=== PATIENT | female | born 1960 | race Caucasian/White ===

== ENCOUNTER → 2016-09-04 | Outpatient (CLI) | payer BC ==
[~2016-09-04] MED LIST: CHOL100010 PO; FEXO1TAB45 PO; GLAT1INJ SQ; MONT1TAB3 PO; PRLSR20 PO
--- NOTE | 2016-09-04 09:22 | DIAGNOSTIC IMAGING REPORT ---
RIGHT KNEE 2 VIEWS CLINICAL HISTORY: Right knee pain. FINDINGS: AP and lateral views of the right knee are obtained. No prior studies are available for comparison at the time of dictation. The skeletal structures are well mineralized for age. No fracture is seen. There is moderate narrowing at the patellofemoral articulation. The joint spaces of the medial and lateral compartments appear maintained. There is degenerative beaking of the tibial spine and small marginal osteophytes. Patellar enthesophytes are observed. A calcified fabella is incidentally noted. No joint effusion is identified. The overlying soft tissues are within normal limits. IMPRESSION: Mild degenerative change as above. No acute bony abnormality is seen in the right knee. Electronically signed by: Fabiano Menjivar M.D. 09/04/2016 9:20 AM Dictated Date/Time: 09/04/2016 9:19 AM
--- NOTE | 2016-09-04 09:26 | DIAGNOSTIC IMAGING REPORT ---
LEFT KNEE 2 VIEWS CLINICAL HISTORY: Left knee pain. FINDINGS: AP and lateral views of the left knee are obtained. No prior studies are available for comparison at the time of dictation. The skeletal structures are well mineralized for age. No fracture is seen. There is moderate narrowing at the patellofemoral articulation. Mild narrowing is seen in the medial compartment. There is degenerative beaking of the tibial spine and small marginal osteophytes. Patellar enthesophytes are observed. A calcified fabella is incidentally noted. No joint effusion is identified. The overlying soft tissues are within normal limits. IMPRESSION: Mild degenerative change as above. No acute bony abnormality is seen in the left knee. Electronically signed by: Fabiano Menjivar M.D. 09/04/2016 9:25 AM Dictated Date/Time: 09/04/2016 9:24 AM
== END | disposition home or self-care (01) ==
LOC: C.RAD1850 08:58
PROVIDERS: ATTEND Family Medicine
DX: M25.561 Pain in right knee (principal); M25.562 Pain in left knee; Z13.220 Encounter for screening for lipoid disorders; G35 Multiple sclerosis; R53.83 Other fatigue

== ENCOUNTER → 2016-09-05 | Outpatient (CLI) | payer BC ==
[2016-09-05 11:27] LABS: BASO % 0.3 %; BASO ABS # 0.02 K/uL (0-0.2); COMPLETE YES; EOS % 2.1 %; HEMATOCRIT 43.7 % (37-47); IG% 0.2 %; LYMPH % 36.7 %; LYMPH ABS # 2.12 K/uL (1.2-3.4); MEAN CELL VOLUME 90.1 fL (80-100); MEAN CORPUSCULAR HEMOGLOBIN 29.3 pg (25-34); MEAN CORPUSCULAR HGB CONC 32.5 g/dl (32-36); MEAN PLATELET VOLUME 9.5 fL (7.4-10.4); MONO % 8.3 %; NEUT % 52.4 %; PLATELET COUNT 225 K/uL (130-400); RED BLOOD COUNT 4.85 M/uL (4.2-5.4); WHITE BLOOD COUNT 5.78 K/uL (4.8-10.8)
[2016-09-05 11:41] LABS: ALT/SGPT 37 U/L (12-78); AST/SGOT 25 U/L (15-37); BLOOD UREA NITROGEN 16 mg/dl (7-18); BUN/CREATININE RATIO 18.9 (10-20); CALCIUM 8.9 mg/dl (8.5-10.1); CARBON DIOXIDE 30 mmol/L (21-32); CHLORIDE 108 mmol/L (98-107); CREATININE 0.84 mg/dl (0.60-1.20); GLUCOSE 84 mg/dl (70-99); HDL CHOLESTEROL 67 mg/dl; POTASSIUM 4.1 mmol/L (3.5-5.1); SODIUM 142 mmol/L (136-145)
[2016-09-05 11:52] LABS: ALB/GLOB RATIO 1.2 (0.9-2); ALKALINE PHOSPHATASE 71 U/L (45-117); CHOLESTEROL 192 mg/dl (0-200); CHOLESTEROL/HDL RATIO 2.9; LDL CHOLESTEROL CALCULATED 107 mg/dl; TRIGLYCERIDES 91 mg/dl (0-150); VERY LOW DENSITY LIPOPROT CALC 18 mg/dl
--- NOTE | 2016-09-09 13:59 | CODING QUERY MEDICAL NECESSITY ---
SUPPORTING DIAGNOSIS NEEDED Dr. Gomez, A supporting diagnosis is required for the test/procedure performed on this patient in order for us to be reimbursed by the patient's insurance. Please provide a supporting diagnosis for the following test/procedure listed below next to the test name along with your signature. *If there is no additional diagnosis for this patient that would support the following test/procedure please document that below next to the test/procedure. Test(s)/Procedure(s) that require a supporting diagnosis: * ([id number]) VITAMIN D ASSAY DIAGNOSIS: DATE OF SERVICE: 09/05/16 Provider Signature: Date: Thank you Meir Rey [facility] Information Management Once completed, please kindly fax back to [phone] For questions please call [phone]
== END | disposition home or self-care (01) ==
LOC: C.LAB 10:42
PROVIDERS: ATTEND Family Medicine
DX: Z13.220 Encounter for screening for lipoid disorders (principal); G35 Multiple sclerosis; R53.83 Other fatigue

== ENCOUNTER → 2016-10-20 | Outpatient (CLI) | payer BC ==
--- NOTE | 2016-10-20 16:43 | MAMMOGRAPHY REPORT ---
BILATERAL DIGITAL SCREENING MAMMOGRAM TOMOSYNTHESIS WITH CAD: 10/20/2016 CLINICAL HISTORY: Routine screening. Patient has no complaints. TECHNIQUE: Breast tomosynthesis in addition to standard 2D mammography was performed. Current study was also evaluated with a Computer Aided Detection (CAD) system. COMPARISON: Comparison is made to exams dated: 09/11/2015 mammogram, 09/04/2014 mammogram, 08/03/2013 shilo mogram, 07/21/2012 mammogram, 05/05/2011 mammogram, and 04/09/2010 mammogram - [facility] er. BREAST COMPOSITION: There are scattered areas of fibroglandular density in both breasts. FINDINGS: The parenchymal pattern is unchanged. No developing mass, architectural distortion or clus ter of suspicious microcalcifications is seen in either breast. IMPRESSION: ACR BI-RADS CATEGORY 2: BENIGN There is no mammographic evidence of malignancy. A 1 year screening mammogram is recommended. The pa tient will receive written notification of the results. Approximately 10% of breast cancers are not detected with mammography. A negative mammographic report should not delay biopsy if a clinically suggestive mass is present. Celena Morgan M.D. ay/:10/20/2016 16:29:25 Pipelayer: Ginny [facility] letter sent: Normal 1/2 BI-RADS Code: ACR BI-RADS Category 2: Benign
== END | disposition home or self-care (01) ==
LOC: C.MAMM 16:02
PROVIDERS: ATTEND Family Medicine
DX: Z12.31 Encounter for screening mammogram for malignant neoplasm of breast (principal)

== ENCOUNTER → 2017-02-19 | Outpatient (CLI) | payer BC | END | disposition home or self-care (01) | LOC: C.PAPS 11:57 | PROVIDERS: ATTEND Obstetrics & Gynecology | DX: Z01.419 Encounter for gynecological examination (general) (routine) without abnormal findings (principal) ==

== ENCOUNTER → 2017-05-11 | Outpatient (CLI) | payer BC ==
[~2017-05-11] MED LIST changes: +GADAVIST IV PRN
--- NOTE | 2017-05-11 09:30 | DIAGNOSTIC IMAGING REPORT ---
Brain MRI WITH AND WITHOUT CONTRAST HISTORY: Multiple sclerosis. Follow-up. TECHNIQUE: Multiplanar multisequence MRI of the brain was performed both before and after the intravenous administration of contrast. COMPARISON STUDY: Outside hospital brain MRI 04/02/2016. FINDINGS: There again noted a few scattered foci of T2 hyperintensity seen within the periventricular and subcortical white matter of the supratentorial brain. Dominant lesion within the subcortical white matter of the right parietal lobe measures approximately 13 mm. No new T2 hyperintense foci identified. There is no mass, hematoma, midline shift, or acute infarct. The ventricles are the midline structures are intact. No abnormal enhancement. The paranasal sinuses and mastoid air cells are clear. The orbits are unremarkable. The major vascular flow-voids at the skull base are well-maintained. IMPRESSION: 1. There are again noted a few scattered white matter plaques within the supratentorial brain, unchanged. This is consistent with the patient's history of multiple sclerosis. 2. No abnormal enhancement to suggest active demyelination. Electronically signed by: Idris Del Rosario M.D. 05/11/2017 9:29 AM Dictated Date/Time: 05/11/2017 9:23 AM
--- NOTE | 2017-05-11 09:43 | DIAGNOSTIC IMAGING REPORT ---
CERVICAL SPINE MRI WITH AND WITHOUT CONTRAST HISTORY: Multiple sclerosis. Follow-up. TECHNIQUE: Multiplanar multisequence MRI of the cervical spine was performed both before and after the use of intravenous contrast. COMPARISON STUDY: Outside hospital cervical spine MRI 04/02/2016. FINDINGS: Alignment and curvature are intact. No fractures within the cervical spine. Moderate disc space narrowing at C5-C6 and C6-C7. The cervical spinal cord is normal in course, caliber, and signal intensity. No abnormal enhancement identified. A partially visualized 7 mm nodule/cyst within the left thyroid lobe and a 5 mm nodule/cyst within the right thyroid lobe. 6 mm T1 and T2 hyperintense focus within the superior endplate of T1. This favors a hemangioma. Prevertebral soft tissues and the C1-C2 interval are intact. C2-C3: No significant central canal or neural foraminal narrowing. C3-C4: No significant central canal or neural foraminal narrowing. C4-C5: No significant central canal or neural foraminal narrowing. C5-C6: Small broad-based posterior disc bulge resulting in mild central canal narrowing. Moderate left neural foraminal narrowing. C6-C7: Small broad-based posterior disc bulge resulting in mild central canal narrowing. No significant right-sided neural foraminal narrowing. Mild left-sided neural foraminal narrowing. C7-T1: No significant central canal or neural foraminal narrowing. IMPRESSION: 1. Normal cervical spinal cord. 2. Degenerative disc disease at C5-C6 and C6-C7 as described above. Electronically signed by: Idris Del Rosario M.D. 05/11/2017 9:42 AM Dictated Date/Time: 05/11/2017 9:31 AM
== END | disposition home or self-care (01) ==
LOC: C.MRIBC 07:46
PROVIDERS: ATTEND Psychiatry & Neurology Neurology
DX: G35 Multiple sclerosis (principal)

== ENCOUNTER 2022-08-08 09:04 | Observation (INO) ==
[2022-08-08] MEDS ORDERED: ACETAMINOPHEN 325 MG TAB PO STA (09:31)
[2022-08-08] MEDS ORDERED: SODIUM CHLORIDE 0.9% 1000ML 2,000 ML IV ONE (09:31)
--- NOTE | 2022-08-08 09:36 | Emergency Department Note ---
Impression & Plan Pneumonia, Parainfluenza, Hypotension ED Provider Note NAME: ROBERT HILL AGE: 62 SEX: F : 1960 ARRIVES VIA: Walk-In INFORMANT: Patient ED PROVIDER(S): Nickolas Greene DO CHIEF COMPLAINT: fever and cough HPI: Patient is a 62-year-old female with a past medical history of multiple sclerosis, demyelinating disorder, and restless leg syndrome who presents to the ER for cough, congestion, runny nose which has been present since last Wednesday. She denies any fevers. She notes some pain in her chest just with coughing. No belly pain. No dysuria, urgency, or frequency. No other exacerbating or remitting factors. PAST MEDICAL HISTORY:See Below PAST SURGICAL HISTORY:See Below FAMILY HISTORY:See Below SOCIAL HISTORY:See Below HOME MEDICATIONS:See Below ALLERGIES:See Below VITALS:See Below PHYSICAL EXAMINATION: GENERAL: Sitting up in bed, alert, well appearing, well nourished, no distress, non-toxic EYE EXAM: normal conjunctiva. OROPHARYNX: mucous membranes are dry NECK: supple, no nuchal rigidity, no adenopathy, non-tender LUNGS: Clear to auscultation. Normal chest wall mechanics HEART: no murmurs, S1 normal and S2 normal ABDOMEN: abdomen soft, non-tender, normo-active bowel sounds, no masses, no rebound or guarding. UPPER EXTREMITIES: upper extremities are grossly normal. LOWER EXTREMITIES: No pitting edema. NEURO EXAM: Normal sensorium, cranial nerves II-XII grossly intact, normal speech, no gross weakness of arms, no gross weakness of legs. MEDICAL DECISION MAKING: Patient is a 60-year-old female who presents to the ER for cough congestion upper respiratory symptoms. IV was established blood work was obtained. Patient was found to be febrile, tachycardic and hypotensive with systolics in the 90s. Patient was given IV fluids and systolic pressures trended up. BMP with LFTs bilirubin was unremarkable. CBC was normal. Troponin was negative. Pro-Jelani normal. UA was clean. Parainfluenza was positive. Does have a left upper lobe infiltrate. Was given azithromycin and Rocephin. Patient was updated bedside. Discussed with Javi Teresa for further evaluation management treatment. Triage Nursing notes reviewed. Limited review of prior medical records performed Vital Signs: reviewed and remarkable for tachy, hypotension and febrile Differential diagnosis: Differential diagnosis includes etiologies such as sepsis, UTI, pneumonia, metabolic, electrolyte abnormalities, cardiac sources, intracerebral event, toxicologic, neurological, as well as others were entertained. ER treatment provided: See below Diagnostics interpreted by me include EKG and cardiac monitoring as listed below: -Cardiac Monitoring: An order was placed for continuous cardiac monitoring. The monitor shows a rate of 101 with sinus rhythm. -ECG: Sinus tachycardia rate of 107 Normal axis No PVCs QTc 433 -Laboratory studies:Interpreted by me as stated above in MDM and shown below. 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 Brother No problems noted. Daughter EDS (Macho-Danlos syndrome) Daughter No problems noted. Son No problems noted. Denies family history of Colon cancer Ovarian cancer Prostate cancer Breast cancer Social History Smoking Status: Never smoker Tobacco Type: Cigarettes Second Hand Exposure: No; Hx Alcohol Use: No Hx Substance Use: No Preferred Language: Mozambican Communication Ability: Effective Visual Impairment: No Limitations Hearing Ability: Normal Steam Service Inspector Required: No Beliefs That Will Affect Care: None marital status: Single Current Living Situation: Alone current occupational status: employed current occupation: Accounting Other Information That Helps Us Care for You: No Feels Safe at Home: Yes Safety Concerns: Feels Safe At This Time Childhood Exposure to Second-Hand Smoke: Yes Diet Comment: regular Dental Care, Regularly: Yes Physical Activity Frequency: Daily Seatbelt Use: always Sunscreen Use: Yes Assistive Devices: None Allergies Allergies Allergy/AdvReac Type Severity Reaction Status Date / Time No Known Drug Allergies Allergy Verified 07/28/22 16:04 Pollen Allergy Unknown Uncoded 07/28/22 16:04 Trees Allergy Unknown Uncoded 07/28/22 16:04 Home Meds Home Medications Medication Instructions Recorded Confirmed cholecalciferol (vitamin D3) 50 2,000 unit PO DAILY 12/24/18 07/28/22 mcg (2,000 unit) capsule cranberry PO DAILY 12/24/18 07/28/22 omega-3 acid ethyl esters 1 gram 1 PO .TAKE 1 CAPSULE DAILY 12/24/18 07/28/22 capsule cyanocobalamin (vitamin B-12) 1,000 mcg PO DAILY 01/18/20 08/08/22 1,000 mcg capsule famotidine 40 mg tablet 40 mg PO DAILY 08/08/22 08/08/22 ropinirole 0.25 mg tablet 0.25 mg PO DIRECTED 08/08/22 08/08/22 Previous Rx's Medication Instructions Recorded cetirizine 10 mg tablet 10 mg PO DAILY #90 tabs 09/01/19 omeprazole 40 mg capsule,delayed 40 mg PO DAILY #90 caps 09/13/21 release montelukast 10 mg tablet 10 mg PO HS #90 tabs 12/19/21 gabapentin 300 mg capsule 600 mg PO HS 90 days #180 caps 03/04/22 mirabegron 25 mg tablet,extended 25 mg PO DAILY #30 tabs 07/13/22 release 24 hr (Myrbetriq) Results & Data (ED) Vital Signs Vital Signs - 24 hr 08/08/22 09:14 08/08/22 09:53 08/08/22 10:00 Temperature 38.0 C H Temperature Source Skin Pulse Rate 105 H 106 H 104 H Pulse Rate [Exercises] Pulse Rate [Recovery] Respiratory Rate 20 21 Respiratory Rate [Exercises] Respiratory Rate [Recovery] Respiratory Effort / Characteristics Non-Labored Spontaneous Labored Respiratory Depth Normal Respiratory Pattern Regular Blood Pressure 98/60 L 124/62 Blood Pressure Mean 72 82 Pulse Oximetry 94 96 Pulse Oximetry [Exercises] Pulse Oximetry [Recovery] Oxygen Delivery Method Room Air Room Air Sepsis Recent Fever Within 48 Hours Yes Sepsis New/Unexplained Change in Mental Status N/A Sepsis Action Taken by Nursing No Action Required 08/08/22 11:03 08/08/22 10:30 08/08/22 12:16 Temperature 37.3 C Temperature Source Oral Pulse Rate 99 H Pulse Rate [Exercises] 108 H Pulse Rate [Recovery] 94 H Respiratory Rate 17 Respiratory Rate [Exercises] 18 Respiratory Rate [Recovery] 18 Respiratory Effort / Characteristics Respiratory Depth Respiratory Pattern Blood Pressure 124/62 Blood Pressure Mean 82 Pulse Oximetry 95 Pulse Oximetry [Exercises] 95 Pulse Oximetry [Recovery] 96 Oxygen Delivery Method Room Air Room Air Sepsis Recent Fever Within 48 Hours Sepsis New/Unexplained Change in Mental Status Sepsis Action Taken by Nursing 08/08/22 11:32 08/08/22 12:00 Temperature Temperature Source Pulse Rate 95 H 90 Pulse Rate [Exercises] Pulse Rate [Recovery] Respiratory Rate 22 20 Respiratory Rate [Exercises] Respiratory Rate [Recovery] Respiratory Effort / Characteristics Respiratory Depth Respiratory Pattern Blood Pressure 131/77 134/69 Blood Pressure Mean 95 90 Pulse Oximetry 94 95 Pulse Oximetry [Exercises] Pulse Oximetry [Recovery] Oxygen Delivery Method Room Air Room Air Sepsis Recent Fever Within 48 Hours Sepsis New/Unexplained Change in Mental Status Sepsis Action Taken by Nursing Laboratory Data 08/08/22 09:28 08/08/22 09:28 Lab Results 08/08/22 08/08/22 08/08/22 Range/Units 09:28 09:28 09:28 WBC 7.77 (4.8-10.8) K/ul RBC 4.46 (4.20-5.40) M/uL Hgb 13.2 (12.0-16.0) g/dl Hct 39.0 (37.0-47.0) % MCV 87.4 (80.0-100.0) fL MCH 29.6 (25.0-34.0) pg MCHC 33.8 (32.0-36.0) g/dL RDW Std Deviation 42.3 (36.4-46.3) fL RDW Coeff of Aishwarya 13.2 (11.5-14.5) % Plt Count 202 (130-400) K/uL MPV 9.6 (9.4-12.4) fL Immature Gran % (Auto) 0.3 % Neut % (Auto) 85.0 % Lymph % (Auto) 8.9 % Christian % (Auto) 4.9 % Eos % (Auto) 0.6 % Baso % (Auto) 0.3 % Neut # (Auto) 6.61 H (1.40-6.50) K/uL Lymph # (Auto) 0.69 L (1.2-3.4) K/uL Christian # (Auto) 0.38 (0.11-0.59) K/uL Eos # (Auto) 0.05 (0-0.50) K/uL Baso # (Auto) 0.02 (0-0.2) K/uL Immature Gran # (Auto) 0.02 (0.01-0.20) K/uL Sodium 138 (136-145) mmol/L Potassium 3.8 (3.5-5.1) mmol/L Chloride 104 (98-107) mmol/L Carbon Dioxide 27 (21-32) mmol/L Anion Gap 7 (3-11) BUN 14 (6-23) mg/dl Creatinine 0.83 (0.6-1.2) mg/dl Est Cr Clr Drug Dosing 80.3 ml/min Est GFR ( Amer) 87.6 ml/min Est GFR (Non-Af Amer) 75.6 ml/min BUN/Creatinine Ratio 16.9 (10-20) Glucose 117 H (70-99(Fasting)) mg/dl Lactate (0.4-2.0) mmol/L Calcium 8.8 (8.6-10.3) mg/dl Magnesium 1.8 (1.7-2.4) mg/dl Total Bilirubin 0.7 (0.2-1.0) mg/dl Direct Bilirubin 0.2 (0-0.2) mg/dl AST 26 (13-39) U/L ALT 27 (7-52) U/L Alkaline Phosphatase 75 (34-104) U/L Troponin I High Sens 6.1 (0-14) pg/ml Total Protein 7.0 (6.0-8.3) gm/dl Albumin 4.1 (3.4-5.0) gm/dl Procalcitonin 0.08 (0-0.5) ng/ml Urine Color Urine Appearance (Clear) Urine pH (4.5-7.5) Ur Specific [place] (1.000-1.030) Urine Protein (Negative) Urine Glucose (UA) (Negative) Urine Ketones (Negative) Urine Blood (Negative) Urine Nitrite (Negative) Urine Bilirubin (Negative) Urine Urobilinogen (Negative) Ur Leukocyte Esterase (Negative) Urine WBC (Auto) (0-5) /hpf Urine RBC (Auto) (0-4) /hpf U Hyaline Cast (Auto) (0-5) /lpf U Epithel Cells (Auto) (0-5) /lpf Urine Bacteria (Auto) (Negative) Adenovirus (PCR) (NotDetected) B. pertussis DNA (PCR) (NotDetected) B.parapertussis DNA PCR (NotDetected) C. pneumoniae DNA (PCR) (NotDetected) Coronavirus OC43 (PCR) (NotDetected) Coronavirus HKU1 (PCR) (NotDetected) Coronavirus 229E (PCR) (NotDetected) SARS-CoV-2 (PCR) (NotDetected) Coronavirus NL63 (PCR) (NotDetected) Human Metapneumovir PCR (NotDetected) Influenza Type A (PCR) (NotDetected) Influenza Type B (PCR) (NotDetected) M. pneumoniae (PCR) (NotDetected) Parainfluenza 1 (PCR) (NotDetected) Parainfluenza 2 (PCR) (NotDetected) Parainfluenza 3 (PCR) (NotDetected) Parainfluenza 4 (PCR) (NotDetected) RSV (PCR) (NotDetected) Entero/Rhino (PCR) (NotDetected) 08/08/22 08/08/22 08/08/22 Range/Units 09:28 09:28 10:07 WBC (4.8-10.8) K/ul RBC (4.20-5.40) M/uL Hgb (12.0-16.0) g/dl Hct (37.0-47.0) % MCV (80.0-100.0) fL MCH (25.0-34.0) pg MCHC (32.0-36.0) g/dL RDW Std Deviation (36.4-46.3) fL RDW Coeff of Aishwarya (11.5-14.5) % Plt Count (130-400) K/uL MPV (9.4-12.4) fL Immature Gran % (Auto) % Neut % (Auto) % Lymph % (Auto) % Christian % (Auto) % Eos % (Auto) % Baso % (Auto) % Neut # (Auto) (1.40-6.50) K/uL Lymph # (Auto) (1.2-3.4) K/uL Christian # (Auto) (0.11-0.59) K/uL Eos # (Auto) (0-0.50) K/uL Baso # (Auto) (0-0.2) K/uL Immature Gran # (Auto) (0.01-0.20) K/uL Sodium (136-145) mmol/L Potassium (3.5-5.1) mmol/L Chloride (98-107) mmol/L Carbon Dioxide (21-32) mmol/L Anion Gap (3-11) BUN (6-23) mg/dl Creatinine (0.6-1.2) mg/dl Est Cr Clr Drug Dosing ml/min Est GFR ( Amer) ml/min Est GFR (Non-Af Amer) ml/min BUN/Creatinine Ratio (10-20) Glucose (70-99(Fasting)) mg/dl Lactate 1.0 (0.4-2.0) mmol/L Calcium (8.6-10.3) mg/dl Magnesium (1.7-2.4) mg/dl Total Bilirubin (0.2-1.0) mg/dl Direct Bilirubin (0-0.2) mg/dl AST (13-39) U/L ALT (7-52) U/L Alkaline Phosphatase (34-104) U/L Troponin I High Sens (0-14) pg/ml Total Protein (6.0-8.3) gm/dl Albumin (3.4-5.0) gm/dl Procalcitonin (0-0.5) ng/ml Urine Color Yellow Urine Appearance Clear (Clear) Urine pH 7.5 (4.5-7.5) Ur Specific [place] 1.015 (1.000-1.030) Urine Protein Negative (Negative) Urine Glucose (UA) Negative (Negative) Urine Ketones Negative (Negative) Urine Blood 1+ H (Negative) Urine Nitrite Negative (Negative) Urine Bilirubin Negative (Negative) Urine Urobilinogen Negative (Negative) Ur Leukocyte Esterase Trace H (Negative) Urine WBC (Auto) 1-5 (0-5) /hpf Urine RBC (Auto) 10-30 H (0-4) /hpf U Hyaline Cast (Auto) 0 (0-5) /lpf U Epithel Cells (Auto) 10-20 H (0-5) /lpf Urine Bacteria (Auto) Negative (Negative) Adenovirus (PCR) Not Detected (NotDetected) B. pertussis DNA (PCR) Not Detected (NotDetected) B.parapertussis DNA PCR Not Detected (NotDetected) C. pneumoniae DNA (PCR) Not Detected (NotDetected) Coronavirus OC43 (PCR) Not Detected (NotDetected) Coronavirus HKU1 (PCR) Not Detected (NotDetected) Coronavirus 229E (PCR) Not Detected (NotDetected) SARS-CoV-2 (PCR) Not Detected (NotDetected) Coronavirus NL63 (PCR) Not Detected (NotDetected) Human Metapneumovir PCR Not Detected (NotDetected) Influenza Type A (PCR) Not Detected (NotDetected) Influenza Type B (PCR) Not Detected (NotDetected) M. pneumoniae (PCR) Not Detected (NotDetected) Parainfluenza 1 (PCR) Not Detected (NotDetected) Parainfluenza 2 (PCR) Not Detected (NotDetected) Parainfluenza 3 (PCR) DETECTED A* (NotDetected) Parainfluenza 4 (PCR) Not Detected (NotDetected) RSV (PCR) Not Detected (NotDetected) Entero/Rhino (PCR) Not Detected (NotDetected) Administered Medications Discontinued Medications Acetaminophen (Acetaminophen 325 Mg Tab) 650 mg PO NOW STA Stop: 08/08/22 09:32 Last Admin: 08/08/22 09:55 Dose: Not Given Documented By: MERNA Sodium Chloride (Nss 1000ml) 2,000 mls @ 999 mls/hr IV .Q2H1M ONE Stop: 08/08/22 11:31 Last Infusion: 08/08/22 11:42 Dose: 0 mls/hr Documented By: Admin: 08/08/22 09:38 Dose: 999 mls/hr Documented By: MERNA Ceftriaxone Sodium (Rocephin) 2,000 mg in 70 mls @ 140 mls/hr IV NOW STA Stop: 08/08/22 13:09 Last Infusion: 08/08/22 13:19 Dose: 0 mls/hr Documented By: Admin: 08/08/22 12:49 Dose: 140 mls/hr Documented By: MERNA Azithromycin 500 mg/ Dextrose 255 mls @ 125 mls/hr IV ONE ONE Stop: 08/08/22 14:42 Last Admin: 08/08/22 13:46 Dose: 125 mls/hr Documented By: RODOLFO Ibuprofen (Ibuprofen 200 Mg Tab) 400 mg PO NOW STA Stop: 08/08/22 09:46 Last Admin: 08/08/22 09:55 Dose: 400 mg Documented By: MERNA Imaging Data Radiologist's Impression: Chest X-Ray 08/08/22 09:31 XR chest 1V portable CLINICAL HISTORY: Sepsis. COMPARISON STUDY: No previous studies for comparison. FINDINGS: No pneumothorax or pleural effusion is present. There is subtle reticulonodular interstitial thickening with possible patchy left lung opacities. There is no lobar consolidation. No evidence for pulmonary edema. Cardiomediastinal silhouette is unremarkable. IMPRESSION: Reticulonodular interstitial thickening with possible patchy left lung opacities. This is nonspecific but may reflect an infectious etiology. Radiographic follow-up is recommended. ACT 112: Negative or not required by law. Electronically signed by: Sandro Carvajal M.D. 08/08/2022 9:52 AM Discharge Plan Visit Data Chief Complaint: Illness Stated Complaint: DIZZINESS, SHAKING, COUGH ED Provider: Nickolas Greene Discharge Problem: Pneumonia, Parainfluenza, Hypotension Patient Disposition: Admitted As Inpatient Discharge Instructions Interventions: ED Discharge Assessment Last Done: 08/08/22 14:07
[2022-08-08] MEDS ORDERED: IBUPROFEN 200 MG TAB PO STA (09:45)
--- NOTE | 2022-08-08 09:53 | XRay Report ---
XR chest 1V portable CLINICAL HISTORY: Sepsis. COMPARISON STUDY: No previous studies for comparison. FINDINGS: No pneumothorax or pleural effusion is present. There is subtle reticulonodular interstitia l thickening with possible patchy left lung opacities. There is no lobar consolidation. No evidence f or pulmonary edema. Cardiomediastinal silhouette is unremarkable. IMPRESSION: Reticulonodular interstitial thickening with possible patchy left lung opacities. This i s nonspecific but may reflect an infectious etiology. Radiographic follow-up is recommended. ACT 112: Negative or not required by law. Electronically signed by: Sandro Carvajal M.D. 08/08/2022 9:52 AM
[2022-08-08 10:00] LABS: Appearance Urine Clear (Clear); Bacteria Urine Automated Negative (Negative); Bilirubin Urine Negative (Negative); Blood Urine 1+ (Negative); Cast Urine Automated 0 /lpf (0-5); Color Urine Yellow; Glucose Urine UA Negative (Negative); Ketones Urine Negative (Negative); Leukocyte Esterase Urine Trace (Negative); Nitrite Urine Negative (Negative); Protein Urine Negative (Negative); Specific Gravity Urine 1.015 (1.000-1.030); Urobilinogen Urine Negative (Negative); pH Urine 7.5 (4.5-7.5)
[2022-08-08 10:06] LABS: Basophils # (auto) 0.02 K/uL (0-0.2); Basophils % (auto) 0.3 %; Eosinophils # (auto) 0.05 K/uL (0-0.50); Eosinophils % (auto) 0.6 %; Hemoglobin 13.2 g/dl (12.0-16.0); Immature Granulocytes # (auto) 0.02 K/uL (0.01-0.20); Immature Granulocytes % (auto) 0.3 %; Lymphocytes # (auto) 0.69 K/uL (1.2-3.4); Lymphocytes % (auto) 8.9 %; Mean Corpuscular Hemoglobin 29.6 pg (25.0-34.0); Mean Corpuscular Hgb Conc 33.8 g/dL (32.0-36.0); Mean Corpuscular Volume 87.4 fL (80.0-100.0); Mean Platelet Volume 9.6 fL (9.4-12.4); Monocytes # (auto) 0.38 K/uL (0.11-0.59); Monocytes % (auto) 4.9 %; Neutrophils # (auto) 6.61 K/uL (1.40-6.50); Platelet Count 202 K/uL (130-400); RDW Coefficient of Variation 13.2 % (11.5-14.5); RDW Standard Deviation 42.3 fL (36.4-46.3); Red Blood Count 4.46 M/uL (4.20-5.40); White Blood Count 7.77 K/ul (4.8-10.8)
[2022-08-08 10:18] LABS: Albumin Level 4.1 gm/dl (3.4-5.0); BUN Creatinine Ratio 16.9 (10-20); Bilirubin Direct 0.2 mg/dl (0-0.2); Bilirubin,Total 0.7 mg/dl (0.2-1.0); Calcium 8.8 mg/dl (8.6-10.3); Creatinine Clr Calc Pharmacy 80.3 ml/min; Est GFR (African American) 87.6 ml/min; Est GFR (Non-African American) 75.6 ml/min; Magnesium 1.8 mg/dl (1.7-2.4); Potassium 3.8 mmol/L (3.5-5.1)
[2022-08-08 10:23] LABS: Troponin I High Sensitivity 6.1 pg/ml (0-14)
[2022-08-08 11:04] LABS: Adenovirus PCR Not Detected (NotDetected); Bordetella parapertussis PCR Not Detected (NotDetected); Bordetella pertussis PCR Not Detected (NotDetected); Chlamydia pneumoniae PCR Not Detected (NotDetected); Coronavirus 229E PCR Not Detected (NotDetected); Coronavirus CoV-2 (COVID19)PCR Not Detected (NotDetected); Coronavirus HKU1 PCR Not Detected (NotDetected); Coronavirus NL63 PCR Not Detected (NotDetected); Coronavirus OC43PCR Not Detected (NotDetected); Human Metapneumovirus PCR Not Detected (NotDetected); Influenza A PCR Not Detected (NotDetected); Influenza B PCR Not Detected (NotDetected); Mycoplasma pneumoniae PCR Not Detected (NotDetected); Parainfluenza Virus 1 PCR Not Detected (NotDetected); Parainfluenza Virus 2 PCR Not Detected (NotDetected); Parainfluenza Virus 4 PCR Not Detected (NotDetected); Respiratory Syncytial VirusPCR Not Detected (NotDetected); Rhinovirus/Enterovirus PCR Not Detected (NotDetected)
[2022-08-08 11:11] LABS: Parainfluenza Virus 3 PCR DETECTED (NotDetected)
[2022-08-08] MEDS ORDERED: levoFLOXacin/D5W 750 MG/150 ML BAG IV STA (12:37)
[2022-08-08] MEDS ORDERED: AZITHROMYCIN 500 MG in DEXTROSE 5% 250 ML IV ONE (12:40)
[2022-08-08] MEDS ORDERED: cefTRIAXone SODIUM 2,000 MG/70 ML BAG IV STA (12:40)
--- NOTE | 2022-08-08 13:18 | History & Physical Report ---
Date of Service August 08, 2022 Assessment & Plan (1) Pre-syncope: Plan: Main reason for observation with significant generalized weakness and ongoing pre-syncope despite 2L NSS bolus given in the ER. LR @ 125 ml/hr for 2L [facility] qshift (2) Pneumonia due to parainfluenza virus: Plan: Double worsening illness concerning for secondary bacterial infection however WBC and procalcitonin normal. Only mild infiltrates seen on CXR which could well be just viral pneumonia. Plan to treat with antibiotics for secondary bacterial infection on basis of fever in the ER with associated chills this morning which is new - ceftriaxone + azithromycin IV given by ER provider; will started on Augmentin/azithromycin starting tomorrow. (3) Hypotension: (4) Demyelinating disorder: Plan: Not on DMARD therefore not immunosuppressed (5) Acid reflux disease: Plan: Continue famotidine, switch omeprazole to pantoprazole per hospital formulary (6) RLS (restless legs syndrome): Plan: Continue ropinirole and gabapentin Plan VTE Prophylaxis - low risk Diet - regular Disposition - observation status to med/surg Admission and Anticipated Discharge Date Admission Date: August 07, 2022 History of Present Illness Chief Complaint: Presyncope, generalized weakness Primary Care Provider: Ivelisse Ryan MD Payton Owens is a 62 year old female who presents to the ER with upper respiratory symptoms an presyncope. She reports symptoms started 6 days previously. Initially with nasal congestion, cough and fatigue. She thinks she caught something from her family that are staying with her. She denies any fevers but is having worsening chills this morning and main reason she came in was because she felt dizzy and lightheaded this morning with difficulty getting up from her chair. Coughing up green sputum. She denies any sinus pain, abdominal pain, nausea, vomiting, change in bowels or urinary symptoms. Allergies Allergy/AdvReac Type Severity Reaction Status Date / Time No Known Drug Allergies Allergy Verified 07/28/22 16:04 Pollen Allergy Unknown Uncoded 07/28/22 16:04 Trees Allergy Unknown Uncoded 07/28/22 16:04 Home Medications Medication Instructions Recorded Confirmed Type cholecalciferol (vitamin D3) 50 2,000 unit PO DAILY 12/24/18 07/28/22 History mcg (2,000 unit) capsule cranberry PO DAILY 12/24/18 07/28/22 History omega-3 acid ethyl esters 1 gram 1 PO .TAKE 1 CAPSULE DAILY 12/24/18 07/28/22 History capsule cetirizine 10 mg tablet 10 mg PO DAILY #90 tabs 09/01/19 08/08/22 Rx cyanocobalamin (vitamin B-12) 1,000 mcg PO DAILY 01/18/20 08/08/22 History 1,000 mcg capsule omeprazole 40 mg capsule,delayed 40 mg PO DAILY #90 caps 09/13/21 08/08/22 Rx release montelukast 10 mg tablet 10 mg PO HS #90 tabs 12/19/21 08/08/22 Rx gabapentin 300 mg capsule 600 mg PO HS 90 days #180 caps 03/04/22 08/08/22 Rx mirabegron 25 mg tablet,extended 25 mg PO DAILY #30 tabs 07/13/22 08/08/22 Rx release 24 hr (Myrbetriq) famotidine 40 mg tablet 40 mg PO DAILY 08/08/22 08/08/22 History ropinirole 0.25 mg tablet 0.25 mg PO DIRECTED 08/08/22 08/08/22 History Past Med/Surg History Medical History (Updated 08/08/22 @ 15:10 by Nickolas Greene DO) Asthma Bronchitis Demyelinating disorder Multiple sclerosis 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 Brother No problems noted. Daughter EDS (Macho-Danlos syndrome) Daughter No problems noted. Son No problems noted. Denies family history of Colon cancer Ovarian cancer Prostate cancer Breast cancer Social History Smoking Status: Never smoker Tobacco Type: Cigarettes Second Hand Exposure: No; Hx Alcohol Use: No Hx Substance Use: No Preferred Language: Wolof Communication Ability: Effective Visual Impairment: No Limitations Hearing Ability: Normal Field Services Director Required: No Beliefs That Will Affect Care: None marital status: Single Current Living Situation: Alone current occupational status: employed current occupation: Accounting Other Information That Helps Us Care for You: No Feels Safe at Home: Yes Safety Concerns: Feels Safe At This Time Childhood Exposure to Second-Hand Smoke: Yes Diet Comment: regular Dental Care, Regularly: Yes Physical Activity Frequency: Daily Seatbelt Use: always Sunscreen Use: Yes Assistive Devices: None Review of Systems Review of Systems: All systems reviewed & are unremarkable except as noted in HPI & below Physical Exam Constitutional: WD/WN, vitals as above Eyes: PERRL, conjunctivae normal, anicteric sclerae ENMT: external ear and nose normal, oropharynx normal Neck: trachea midline, no thyromegaly Respiratory: normal respiratory effort; no respiratory distress Auscultation: + crackles (bibasal); breath sounds present, no diminished lung sounds, no rales, no rhonchi and no wheezes Cardiovascular: RRR, no murmur, no edema Gastrointestinal (Abdomen): normal bowel sounds, soft, nontender, no hepatosplenomegaly Musculoskeletal: no cyanosis or clubbing, extremities motor strength 5/5 Skin: no rashes, warm and dry Neurologic: moves all extremities and awake; not confused Psychiatric: A+Ox3, euthymic affect Results & Data Results & Data Vital Signs (Past 12 Hours) Vital Signs Temp Pulse Pulse Pulse Resp Resp Resp 08/08/22 12:00 90 20 08/08/22 11:32 95 H 22 08/08/22 12:16 108 H 94 H 18 18 08/08/22 10:30 99 H 17 08/08/22 11:03 37.3 C 08/08/22 10:00 104 H 21 08/08/22 09:53 106 H 08/08/22 09:14 38.0 C H 105 H 20 BP Pulse Ox Pulse Ox Pulse Ox O2 Del Method 08/08/22 12:00 134/69 95 Room Air 08/08/22 11:32 131/77 94 Room Air 08/08/22 12:16 95 96 Room Air 08/08/22 10:30 124/62 95 Room Air 08/08/22 11:03 08/08/22 10:00 124/62 96 Room Air 08/08/22 09:53 08/08/22 09:14 98/60 L 94 Room Air Laboratory Results Abnormal lab results 08/08/22 08/08/22 08/08/22 Range/Units 09:28 09:28 09:28 Neut # (Auto) 6.61 H (1.40-6.50) K/uL Lymph # (Auto) 0.69 L (1.2-3.4) K/uL Glucose 117 H (70-99(Fasting)) mg/dl Urine Blood 1+ H (Negative) Ur Leukocyte Esterase Trace H (Negative) Urine RBC (Auto) 10-30 H (0-4) /hpf U Epithel Cells (Auto) 10-20 H (0-5) /lpf Parainfluenza 3 (PCR) (NotDetected) 08/08/22 Range/Units 09:28 Neut # (Auto) (1.40-6.50) K/uL Lymph # (Auto) (1.2-3.4) K/uL Glucose (70-99(Fasting)) mg/dl Urine Blood (Negative) Ur Leukocyte Esterase (Negative) Urine RBC (Auto) (0-4) /hpf U Epithel Cells (Auto) (0-5) /lpf Parainfluenza 3 (PCR) DETECTED A* (NotDetected) Diagnostic Findings XR chest 1V portable CLINICAL HISTORY: Sepsis. COMPARISON STUDY: No previous studies for comparison. FINDINGS: No pneumothorax or pleural effusion is present. There is subtle reticulonodular interstitial thickening with possible patchy left lung o pacities. There is no lobar consolidation. No evidence for pulmonary edema. Cardiomediastinal silhouette is unremarkable. IMPRESSION: Reticulonodular interstitial thickening with possible patchy left lung opacities. This is nonspecific but may reflect an infectious etiology. Radiographic follow-up is recommended. Medications Administered ER Medications Given: NSS 2L bolus Acetaminophen 650mg PO Ibuprofen 400mg PO Ceftriaxone 2g IV Azithromycin 500mg IV ECG Rate (beats per minute): 106 Rhythm: sinus tachycardia Findings: + nonspecific-ST abn Comparison ECG Date: from (Apr 17, 2003) Change: no significant change Code Status & VTE Plan Code Status Full VTE Prophylaxis Plan VTE Prophylaxis will be ordered: No PG Care Time/CCT Total # of Minutes Spent Total Time Spent with Patient: Total time spent is greater than 50% in coordination of care (as documented) at patient's floor/unit and/or counseling patient: Coding Level of Care Code 12059 INT INP/OBS CARE MIN Diagnoses Pre-syncope R55 Pneumonia due to parainfluenza virus J12.2 Hypotension I95.9 Demyelinating disorder G37.9 Acid reflux disease K21.9 RLS (restless legs syndrome) G25.81
[2022-08-08] MEDS: LACTATED RINGER'S 1,000 ML IV SCH (16:27)
[2022-08-08] MEDS: FAMOTIDINE 40 MG TABLET PO SCH (16:27)
[2022-08-08] MEDS: MIRABEGRON ER 25 MG TAB PO SCH (16:27)
[2022-08-08] MEDS: MONTELUKAST SODIUM 10 MG TABLET PO SCH (20:24)
[2022-08-08] MEDS: GABAPENTIN 600 MG TAB PO SCH (20:24)
[2022-08-08] MEDS: rOPINIRole HCL 0.25 MG TABLET PO SCH (20:24)
--- NOTE | 2022-08-08 21:54 | Electrocardiogram Report ---
Test Reason : Blood Pressure : / mmHG Vent. Rate : 106 BPM Atrial Rate : 106 BPM P-R Int : 144 ms QRS Dur : 090 ms QT Int : 326 ms P-R-T Axes : 048 029 048 degrees QTc Int : 433 ms Sinus tachycardia Nonspecific ST abnormality When compared with ECG of 17-APR-2003 10:39, No significant change was found Confirmed by Wei Lubin ([id number]) on 08/08/2022 9:53:35 PM Referred By: REFERRED SELF Confirmed By:Wei Lubin
[2022-08-09] MEDS: LACTATED RINGER'S 1,000 ML IV SCH (00:17)
[2022-08-09 06:39] LABS: Basophils # (auto) 0.04 K/uL (0-0.2); Basophils % (auto) 0.3 %; Eosinophils % (auto) 0.8 %; Hematocrit (blood only) 34.6 % (37.0-47.0); Hemoglobin 11.3 g/dl (12.0-16.0); Immature Granulocytes # (auto) 0.06 K/uL (0.01-0.20); Immature Granulocytes % (auto) 0.5 %; Lymphocytes # (auto) 2.16 K/uL (1.2-3.4); Lymphocytes % (auto) 17.7 %; Mean Corpuscular Hemoglobin 28.7 pg (25.0-34.0); Mean Corpuscular Hgb Conc 32.7 g/dL (32.0-36.0); Mean Corpuscular Volume 87.8 fL (80.0-100.0); Mean Platelet Volume 9.5 fL (9.4-12.4); Monocytes % (auto) 6.6 %; Neutrophils # (auto) 9.01 K/uL (1.40-6.50); Neutrophils % (auto) 74.1 %; Platelet Count 199 K/uL (130-400); RDW Coefficient of Variation 13.2 % (11.5-14.5); RDW Standard Deviation 42.7 fL (36.4-46.3); Red Blood Count 3.94 M/uL (4.20-5.40); White Blood Count 12.17 K/ul (4.8-10.8)
[2022-08-09 07:07] LABS: BUN Creatinine Ratio 12.5 (10-20); Calcium 8.6 mg/dl (8.6-10.3); Creatinine Clr Calc Pharmacy 93.1 ml/min; Est GFR (Non-African American) 89.8 ml/min; Potassium 3.6 mmol/L (3.5-5.1)
[2022-08-09] MEDS: AMOXICILLIN/CLAVULANATE 875 MG TAB PO SCH ×2 (08:49→17:29)
[2022-08-09] MEDS: MIRABEGRON ER 25 MG TAB PO SCH (08:50)
[2022-08-09] MEDS: FAMOTIDINE 40 MG TABLET PO SCH (08:50)
[2022-08-09] MEDS: CETIRIZINE HCL 10 MG TABLET PO SCH (08:50)
[2022-08-09] MEDS: PANTOprazole 40 MG TAB PO SCH (08:50)
[2022-08-09] MEDS: AZITHROMYCIN 250 MG TAB PO SCH (08:50)
[2022-08-09] MEDS: SODIUM CHLORIDE 0.9% 1000ML 1,000 ML IV SCH ×2 (11:26→19:27)
--- NOTE | 2022-08-09 14:13 | Hospitalist Progress Note ---
Date of Service August 09, 2022 Assessment & Plan (1) Pre-syncope: Plan: Patient is still orthostatic Start IV fluids Recheck orthostatic vital signs tomorrow (2) Pneumonia due to parainfluenza virus: Plan: worsening illness concerning for secondary bacterial infection however WBC and procalcitonin normal. Only mild infiltrates seen on CXR which could well be just viral pneumonia. Plan to treat with antibiotics for secondary bacterial infection on basis of fever in the ER with associated chills this morning which is new - ceftriaxone + azithromycin IV given by ER provider; now on Augmentin/azithromycin (3) Hypotension: Plan: Orthostatic hypotension IV fluid (4) Demyelinating disorder: Plan: Not on DMARD therefore not immunosuppressed (5) Acid reflux disease: Plan: Continue famotidine, switch omeprazole to pantoprazole per hospital formulary (6) RLS (restless legs syndrome): Plan: Continue ropinirole and gabapentin Plan VTE Prophylaxis - low risk Diet - regular Disposition -likely discharge tomorrow Admission and Anticipated Discharge Date Admission Date: August 08, 2022 Subjective Patient feels better overall. Noted positive orthostatic vital signs. She denies chest pain or shortness of breath. Review of Systems Review of Systems: All systems reviewed & are unremarkable except as noted in Subjective Physical Exam Physical Exam: General: Awake, conversant Heart: S1, S2/regular rate and rhythm, no murmur rubs or gallops Lungs: Clear to auscultation bilaterally. Normal effort Abdomen: Soft/nontender/nondistended. No hepatosplenomegaly Extremities: No clubbing/cyanosis. No edema Behavior: Appropriate, cooperative Results & Data Results & Data Vital Signs (Past 12 Hours) Vital Signs Temp Resp Pulse Ox O2 Del Method 08/09/22 09:09 Room Air 08/09/22 07:11 36.8 C 18 95 Room Air Laboratory Results Abnormal lab results 08/09/22 08/09/22 Range/Units 06:19 06:19 WBC 12.17 H (4.8-10.8) K/ul RBC 3.94 L (4.20-5.40) M/uL Hgb 11.3 L (12.0-16.0) g/dl Hct 34.6 L (37.0-47.0) % Neut # (Auto) 9.01 H (1.40-6.50) K/uL [place] # (Auto) 0.80 H (0.11-0.59) K/uL Procalcitonin 5.90 H (0-0.5) ng/ml PG Care Time/CCT Total # of Minutes Spent Total Time Spent with Patient: Total time spent is greater than 50% in coordination of care (as documented) at patient's floor/unit and/or counseling patient: Coding Level of Care Code 79988 SUB INP/OBS CARE 2/35MIN Diagnoses Pre-syncope R55 Pneumonia due to parainfluenza virus J12.2 Hypotension I95.9 Demyelinating disorder G37.9 Acid reflux disease K21.9 RLS (restless legs syndrome) G25.81
[2022-08-09] MEDS: rOPINIRole HCL 0.25 MG TABLET PO SCH (19:31)
[2022-08-09] MEDS: GABAPENTIN 600 MG TAB PO SCH (19:31)
[2022-08-09] MEDS: MONTELUKAST SODIUM 10 MG TABLET PO SCH (19:31)
[2022-08-10] MEDS: SODIUM CHLORIDE 0.9% 1000ML 1,000 ML IV SCH (03:32)
[2022-08-10] MEDS: CETIRIZINE HCL 10 MG TABLET PO SCH (07:50)
[2022-08-10] MEDS: AMOXICILLIN/CLAVULANATE 875 MG TAB PO SCH (07:50)
[2022-08-10] MEDS: MIRABEGRON ER 25 MG TAB PO SCH (07:50)
[2022-08-10] MEDS: FAMOTIDINE 40 MG TABLET PO SCH (07:51)
[2022-08-10] MEDS: AZITHROMYCIN 250 MG TAB PO SCH (07:51)
[2022-08-10] MEDS: PANTOprazole 40 MG TAB PO SCH (07:51)
--- NOTE | 2022-08-10 10:14 | Discharge Summary ---
Date of Service August 10, 2022 Admission HPI Per Admitting Provider Payton Owens is a 62 year old female who presents to the ER with upper respiratory symptoms an presyncope. She reports symptoms started 6 days previously. Initially with nasal congestion, cough and fatigue. She thinks she caught something from her family that are staying with her. She denies any fevers but is having worsening chills this morning and main reason she came in was because she felt dizzy and lightheaded this morning with difficulty getting up from her chair. Coughing up green sputum. She denies any sinus pain, abdominal pain, nausea, vomiting, change in bowels or urinary symptoms. Admission Exam Per Admitting Provider Constitutional: WD/WN, vitals as above Eyes: PERRL, conjunctivae normal, anicteric sclerae ENMT: external ear and nose normal, oropharynx normal Neck: trachea midline, no thyromegaly Respiratory: normal respiratory effort; no respiratory distress Auscultation: + crackles (bibasal); breath sounds present, no diminished lung sounds, no ral es, no rhonchi and no wheezes Cardiovascular: RRR, no murmur, no edema Gastrointestinal (Abdomen): normal bowel sounds, soft, nontender, no hepatosplenomegaly Musculoskeletal: no cyanosis or clubbing, extremities motor strength 5/5 Skin: no rashes, warm and dry Neurologic: moves all extremities and awake; not confused Psychiatric: A+Ox3, euthymic affect Principal Diagnosis Pneumonia due to parainfluenza virus Presyncope due to orthostatic hypotension from dehydration Discharge Exam General: Awake, conversant Heart: S1, S2/regular rate and rhythm, no murmur rubs or gallops Lungs: Clear to auscultation bilaterally. Normal effort Abdomen: Soft/nontender/nondistended. No hepatosplenomegaly Extremities: No clubbing/cyanosis. No edema Behavior: Appropriate, cooperative Discharge Data Allergies Allergy/AdvReac Type Severity Reaction Status Date / Time No Known Drug Allergies Allergy Verified 07/28/22 16:04 Pollen Allergy Unknown Uncoded 07/28/22 16:04 Trees Allergy Unknown Uncoded 07/28/22 16:04 Consultations 08/08/22 12:40 ED Decision to Admit Stat 08/10/22 08:02 Consult ERA atg architect Routine Hospital Course (1) Pre-syncope: Orthostatic hypotension resolved with hydration Not feeling dizzy anymore (2) Pneumonia due to parainfluenza virus: worsening illness concerning for secondary bacterial infection however WBC and procalcitonin normal. Only mild infiltrates seen on CXR which could well be just viral pneumonia. Plan to treat with antibiotics for secondary bacterial infection on basis of fever in the ER with associated chills this morning which is new - ceftriaxone + azithromycin IV given by ER provider; now on Augmentin/azithromycin to complete the course (3) Hypotension: Orthostatic hypotension resolved IV fluid discontinued (4) Demyelinating disorder: Not on DMARD therefore not immunosuppressed (5) Acid reflux disease: Continue famotidine, switch omeprazole to pantoprazole per hospital formulary (6) RLS (restless legs syndrome): Continue ropinirole and gabapentin Plan VTE Prophylaxis - low risk Diet - regular Disposition -discharge today Total Time Total Time Spent Total Time Spent (In Minutes): 35 Discharge Plan Discharge Items Patient Disposition: Home - Self-Care Reason For Visit: PNEUMONIA,PRESYNCOPE Discharge Diagnosis: Pneumonia due to parainfluenza virus, orthostatic hypotension due to dehydration Activity: Resume your previous activity Non-emergency contact: Primary Care Provider Call non-emergency contact if: you have any medication questions and your symptoms worsen Follow-up/Referrals: Ivelisse Ryan MD [Primary Care Provider] - 08/12/22 9:20 am Diet: Regular Addtl Attending Provider Instructions: Advised to follow-up with PCP in 1 week Pending Studies at Discharge: No Stand-Alone Forms: My [facility] Medications and DC Order Prescriptions: New azithromycin 250 mg Tablet 500 mg PO QAM 4 Days Qty: 8 0RF amoxicillin-pot clavulanate 875-125 mg Tablet 1 tab PO BIDM 4 Days Qty: 8 0RF Continued cetirizine 10 mg tablet 10 mg PO DAILY Qty: 90 1RF omeprazole 40 mg capsule,delayed release(DR/EC) 40 mg PO DAILY Qty: 90 3RF montelukast 10 mg tablet 10 mg PO HS Qty: 90 3RF gabapentin 300 mg capsule 600 mg PO HS 90 Days Qty: 180 1RF Myrbetriq 25 mg tablet extended release 24 hr 25 mg PO DAILY Qty: 30 11RF cholecalciferol (vitamin D3) 2,000 unit capsule 2,000 unit PO DAILY cranberry PO DAILY omega-3 acid ethyl esters 1 gram capsule 1 PO .TAKE 1 CAPSULE DAILY cyanocobalamin (vitamin B-12) 1,000 mcg capsule 1,000 mcg PO DAILY famotidine 40 mg tablet 40 mg PO DAILY ropinirole 0.25 mg tablet 0.25 mg PO DIRECTED Rx Instructions: 0.25 mg PO take 1 tab in the afternoon, then take 2 tabs two hours before bedtime; Discharge Orders: Discharge Order (Routine); Ordered 08/10/22 Ordered By: Maik Prater/Other Patient Handouts: 5 Steps for Eating Healthier Admission Data Admit Date/Time: 08/08/22 13:06 Attending Provider: Maik Johns Admit Provider: Javi Teresa Primary Care Provider: Ivelisse Ryan Other Providers: Javi Teresa Other Interventions: Discharge Summary Assessment (RN) Last Done: 08/10/22 10:48 Coding Level of Care Code 00224 INP/OBS DISCH >30 MIN Diagnoses Pre-syncope R55 Pneumonia due to parainfluenza virus J12.2 Hypotension I95.9 Demyelinating disorder G37.9 Acid reflux disease K21.9 RLS (restless legs syndrome) G25.81
== END 2022-08-10 12:23 | disposition home or self-care (01) ==
LOC: ED 09:04 → 3E 09:04 → SUATTDRO 13:06 → 3E 14:07